=== PATIENT | female | born 1950 | race Caucasian/White ===

== ENCOUNTER 2024-11-18 12:56 | Outpatient (CLI) | payer OTHER | END 2024-11-18 12:59 | disposition home or self-care (01) | LOC: MAMO-SONO 12:56 | DX: N60.12 Diffuse cystic mastopathy of left breast (principal); N60.11 Diffuse cystic mastopathy of right breast; Z12.31 Encounter for screening mammogram for malignant neoplasm of breast ==

== ENCOUNTER 2024-12-07 10:08 | Outpatient (CLI) | payer OTHER | END 2024-12-07 10:09 | disposition home or self-care (01) | LOC: NUCLEAR 10:08 | PROVIDERS: ATTEND Internal Medicine Rheumatology | DX: M81.0 Age-related osteoporosis without current pathological fracture (principal) ==

== ENCOUNTER 2025-01-07 10:26 | Outpatient (CLI) | payer OTHER | END 2025-01-07 10:36 | disposition home or self-care (01) | LOC: RAD 10:26 | DX: M54.2 Cervicalgia (principal) ==

== ENCOUNTER 2025-03-04 11:58 | Outpatient (CLI) | payer OTHER | END 2025-03-04 11:59 | disposition home or self-care (01) | LOC: SONOGRAMA 11:58 | DX: M75.112 Incomplete rotator cuff tear or rupture of left shoulder, not specified as traumatic (principal) ==

== ENCOUNTER 2025-04-14 08:30 | Outpatient (CLI) | payer OTHER | END 2025-04-14 08:32 | disposition home or self-care (01) | LOC: MRI 08:30 | DX: M54.12 Radiculopathy, cervical region (principal) | CPT/HCPCS: 72141 ==